=== PATIENT | male | born 1970 | race American Indian/Alaskan Native ===

== ENCOUNTER 2018-12-13 11:24 | Emergency (ER) | payer SELFPAY ==
[2018-12-13] MEDS ORDERED: XANAX PO ONE (12:09)
[2018-12-13] MEDS ORDERED: CATAPRES PO ONE (12:09)
--- NOTE | 2018-12-13 12:10 | Emergency Department Report ---
ED Chest Pain HPI - General Chief Complaint: Chest Pain Stated Complaint: LIGHT HEADED/(L) SIDE PAIN/DIZZINESS Time Seen by Provider: 12/13/18 12:03 Source: patient Mode of arrival: Ambulatory Limitations: No Limitations - History of Present Illness Initial Comments: Pt is 48 yo AA male with acute onset chest pain, dizziness, and blurred vision. It happened this AM while arguing. He has had this off and on for months all in the setting of fighting or stress. no cig etoh daily drugs thc dad dec ? cause mom a/W hx asthma rx none pcp none MD Complaint: chest pain -: Sudden, month(s) (but off and on for months) Aspirin use within the Past 7 Days: (0) No - Related Data On Oral Contraceptives: No Allergies Allergy/AdvReac Type Severity Reaction Status Date / Time No Known Allergies Allergy Verified 12/13/18 11:33 Heart Score - HEART Score History: Slightly suspicious EKG: Normal Age: < 45 Risk factors: No known risk factors Troponin: < normal limit HEART Score: 0 ED Review of Systems ROS: Stated complaint: LIGHT HEADED/(L) SIDE PAIN/DIZZINESS Other details as noted in HPI Comment: All other systems reviewed and negative Constitutional: denies: chills Eyes: denies: eye pain ENT: denies: ear pain Respiratory: denies: cough Cardiovascular: as per HPI, chest pain Endocrine: denies: flushing Gastrointestinal: denies: abdominal pain, vomiting Genitourinary: denies: urgency Skin: denies: rash Neurological: denies: weakness Psychiatric: denies: as per HPI, depression ED Past Medical Hx - Past Medical History Previous Medical History?: Yes Hx Asthma: Yes - Surgical History Past Surgical History?: Yes Additional Surgical History: rigth knee, left arm - Social History Smoking Status: Never Smoker Substance Use Type: Alcohol ED Physical Exam - General Limitations: No Limitations General appearance: alert, in no apparent distress - Head Head exam: Present: atraumatic - Eye Eye exam: Present: normal appearance, PERRL, EOMI Pupils: Present: normal accommodation - ENT ENT exam: Present: mucous membranes moist - Neck Neck exam: Present: normal inspection - Respiratory Respiratory exam: Present: normal lung sounds bilaterally - Cardiovascular Cardiovascular Exam: Present: regular rate - GI/Abdominal GI/Abdominal exam: Present: soft - Rectal Rectal exam: Present: deferred - Extremities Exam Extremities exam: Present: normal inspection, full ROM - Back Exam Back exam: Present: normal inspection, full ROM - Neurological Exam Neurological exam: Present: alert, oriented X3 ED Course Vital Signs 12/13/18 12/13/18 11:33 12:40 Temperature 97.9 F Pulse Rate 78 73 Respiratory 20 Rate Blood Pressure 172/103 170/111 O2 Sat by Pulse 100 Oximetry - Reevaluation(s) Reevaluation #1: 12/13/18 13:19 discussed blood pressure monitoring and importance of follow up medicated here with clonidine and xanax bp trending down on dc no cp HOWARD score - Howard Score Age > 65: (0) No Aspirin use within the Past 7 Days: (0) No 3 or more CAD Risk Factors: (0) No 2 or more Angina events in past 24 hrs: (0) No Known CAD with more than 50% Stenosis: (0) No Elevated Cardiac Markers: (0) No ST Deviation Greater than 0.5mm: (0) No HOWARD Score: 0 ED Medical Decision Making - Lab Data Result diagrams: 12/13/18 12:04 12/13/18 12:04 - EKG Data -: EKG Interpreted by Me EKG shows normal: sinus rhythm Rate: normal - EKG Data When compared to previous EKG there are: previous EKG unavailable Interpretation: nonspecific ST-T wave lonnie - Radiology Data Radiology results: report reviewed, image reviewed interpreted by me: staci - Medical Decision Making labs normal trop neg 12 lead with t wave inversion avR and V1 discussed with Dr Sammy black home with follow up Labs 12/13/18 12/13/18 12:04 12:04 WBC 6.8 RBC 5.54 H Hgb 14.9 Hct 44.9 MCV 81 L MCH 27 L MCHC 33 RDW 14.6 Plt Count 339 Sodium 141 Potassium 4.4 Chloride 103.1 Carbon Dioxide 24 Anion Gap 18 BUN 11 Creatinine 0.9 Estimated GFR > 60 BUN/Creatinine Ratio 12 Glucose 99 Calcium 9.1 Total Bilirubin 0.30 AST 26 ALT 35 Alkaline Phosphatase 105 Troponin T < 0.010 Total Protein 7.8 Albumin 4.3 Albumin/Globulin Ratio 1.2 - Differential Diagnosis ro acs; anxiety Critical care attestation.: If time is entered above; I have spent that time in minutes in the direct care of this critically ill patient, excluding procedure time. ED Disposition Clinical Impression: Anxiety, Non-cardiac chest pain, Elevated blood pressure reading Disposition: DC- TO HOME OR SELFCARE Is pt being admited?: No Does the pt Need Aspirin: No Condition: Stable Instructions: Chest Pain (ED), Anxiety (ED) Additional Instructions: rest hydrate well with water WHEN ANGRY-- WALK AWAY avoid alcohol and drugs Follow up primary montessori teacher monitor your blood pressure low salt and fat diet Referrals: JACINTO GUPTA MD [Primary Care Provider] - 3-5 Days Time of Disposition: 13:07
[2018-12-13 12:20] LABS: Hematocrit 44.9 % (35.5-45.6); Hemoglobin 14.9 gm/dl (11.8-15.2); Mean Corpuscular HGB Conc 33 % (32-34); Mean Corpuscular Volume 81 fl (84-94); Platelet Count 339 K/mm3 (140-440); Red Blood Count 5.54 M/mm3 (3.65-5.03); Red Cell Distribution Width 14.6 % (13.2-15.2)
[2018-12-13 12:45] LABS: Alanine Aminotransferase 35 units/L (7-56); Albumin 4.3 g/dL (3.9-5); BUN/Creatinine Ratio 12; Blood Urea Nitrogen 11 mg/dL (9-20); Calcium 9.1 mg/dL (8.4-10.2); Hemolysis Index 17
--- NOTE | 2018-12-13 12:48 | XRay Report ---
ROUTINE CHEST, TWO VIEWS: HISTORY: chest pain. The trachea, heart, mediastinal contour, lung flores and bony thorax are unremarkable. IMPRESSION: Unremarkable chest x-ray.
[2018-12-13 13:24] VITALS: BP 143/96
== END 2018-12-13 13:24 | disposition home or self-care (01) ==
LOC: EDBD → ED 11:24
DX: F41.9 Anxiety disorder, unspecified (principal); I10 Essential (primary) hypertension; J45.909 Unspecified asthma, uncomplicated
CPT/HCPCS: 36415; 71046; 80053; 84484; 85027; 93005; 93010; 99284

== ENCOUNTER 2019-05-04 11:52 | Emergency (ER) | payer SELFPAY ==
--- NOTE | 2019-05-04 12:10 | Emergency Department Report ---
Blank Doc - Documentation Documentation: This is a 48-year-old male that presents with dizziness. Stated had a syncopal episode 2 weeks ago. This initial assessment/diagnostic orders/clinical plan/treatment(s) is/are subject to change based on patient's health status, clinical progression and re- assessment by fellow clinical providers in the ED. Further treatment and workup at subsequent clinical providers discretion. Patient/guardians urged not to elope from the ED as their condition may be serious if not clinically assessed and managed. Initial orders include: 1- Patient sent to [facility] for further evaluation and treatment 2- labs 3- EKG 4- CT head
[2019-05-04 12:11] VITALS: BP 148/84
--- NOTE | 2019-05-04 14:22 | Emergency Department Report ---
ED General Adult HPI - General Chief complaint: Dizziness Stated complaint: DIZZY/NAUSEA/PASSED OUT Time Seen by Provider: 05/04/19 12:09 Source: patient Mode of arrival: Ambulatory Limitations: No Limitations - History of Present Illness Initial comments: Patient is a 48-year-old male who is presenting with 2 weeks of not feeling right. Patient states he is getting very dizzy at times nauseated. He occasionally feels his heart racing and palpitations. Patient states that he is under some stress at home and 2 weeks ago had a syncopal episode. Patient states she was hyperventilating while angry. Patient currently states he feels as though occasionally his heart skipping a beat. He denies any facial numbness and tingling. - Related Data Previous Rx's Medication Instructions Recorded Last Taken Type ALPRAZolam [Xanax TAB] 0.25 mg PO BID PRN #6 tab 05/04/19 Unknown Rx Allergies Allergy/AdvReac Type Severity Reaction Status Date / Time No Known Allergies Allergy Verified 12/13/18 11:33 ED Review of Systems ROS: Stated complaint: DIZZY/NAUSEA/PASSED OUT Other details as noted in HPI Comment: All other systems reviewed and negative ED Past Medical Hx - Past Medical History Previous Medical History?: Yes Hx Asthma: Yes - Surgical History Past Surgical History?: Yes Additional Surgical History: rigth knee, left arm - Social History Smoking Status: Never Smoker Substance Use Type: Alcohol - Medications Home Medications: Home Medications Medication Instructions Recorded Confirmed Last Taken Type ALPRAZolam [Xanax TAB] 0.25 mg PO BID PRN #6 tab 05/04/19 Unknown Rx ED Physical Exam - General Limitations: No Limitations General appearance: alert, in no apparent distress - Head Head exam: Present: atraumatic, normocephalic - Eye Eye exam: Present: normal appearance, PERRL, EOMI - ENT ENT exam: Present: mucous membranes moist - Neck Neck exam: Present: normal inspection - Respiratory Respiratory exam: Present: normal lung sounds bilaterally. Absent: respiratory distress, wheezes, rales, rhonchi - Cardiovascular Cardiovascular Exam: Present: regular rate, normal rhythm. Absent: systolic murmur, diastolic murmur, rubs, gallop - GI/Abdominal GI/Abdominal exam: Present: soft, normal bowel sounds. Absent: distended, tenderness, guarding, rebound - Rectal Rectal exam: Present: deferred - Extremities Exam Extremities exam: Present: normal inspection - Back Exam Back exam: Present: normal inspection - Neurological Exam Neurological exam: Present: alert, oriented X3 - Psychiatric Psychiatric exam: Present: normal affect, normal mood - Skin Skin exam: Present: warm, dry, intact, normal color. Absent: rash ED Course Vital Signs 05/04/19 12:09 Temperature 97.9 F Pulse Rate 67 Respiratory 20 Rate Blood Pressure 148/84 O2 Sat by Pulse 99 Oximetry ED Medical Decision Making - Lab Data 86 - EKG Data -: EKG Interpreted by Me EKG shows normal: axis, intervals, QRS complexes, ST-T waves Rate: normal, tachycardia - EKG Data Interpretation: normal EKG - Medical Decision Making Patient is a 48-year-old male who is presenting with palpitations and dizziness. Patient reports being under a court greatly stressed. Did do an EKG that showed no acute abnormality. Orthostatics were negative and the patient was nondiabetic. Patient will be discharged home with primary care follow-up. Critical care attestation.: If time is entered above; I have spent that time in minutes in the direct care of this critically ill patient, excluding procedure time. ED Disposition Clinical Impression: Anxiety as acute reaction to exceptional stress Disposition: DC-01 TO HOME OR SELFCARE Is pt being admited?: No Does the pt Need Aspirin: No Condition: Stable Instructions: Generalized Anxiety Disorder (ED) Prescriptions: ALPRAZolam [Xanax TAB] 0.25 mg PO BID PRN #6 tab PRN Reason: Anxiety Referrals: ALEXANDER LYLES MD [Primary Care Provider] - 3-5 Days Time of Disposition: 14:22
== END 2019-05-04 14:33 | disposition home or self-care (01) ==
LOC: ED 11:52
DX: F41.1 Generalized anxiety disorder (principal); R42 Dizziness and giddiness; R55 Syncope and collapse; J45.909 Unspecified asthma, uncomplicated
CPT/HCPCS: 82962; 93005; 93010

== ENCOUNTER 2020-04-28 04:01 | Emergency (ER) | payer SELFPAY ==
[2020-04-28 04:11] VITALS: BP 142/100
--- NOTE | 2020-04-28 04:37 | XRay Report ---
CHEST 1 VIEW 04/28/2020 4:30 AM INDICATION / CLINICAL INFORMATION: Chest Pain. COMPARISON: 2 views of the chest from 12/13/2018. FINDINGS: SUPPORT DEVICES: None. HEART / MEDIASTINUM: No significant abnormality. LUNGS / PLEURA: No significant pulmonary or pleural abnormality. No pneumothorax. ADDITIONAL FINDINGS: No significant additional findings. IMPRESSION: 1. No acute abnormality of the chest. Signer Name: Urbano Anne MD Signed: 04/28/2020 4:33 AM Workstation Name: [id number]
[2020-04-28 04:53] LABS: Basophils % (Auto) 0.5 % (0.0-1.8); Eosinophils # (Auto) 0.3 K/mm3 (0.0-0.4); Eosinophils % (Auto) 6.4 % (0.0-4.3); Hemoglobin 14.3 gm/dl (11.8-15.2); Lymphocytes # (Auto) 2.7 K/mm3 (1.2-5.4); Lymphocytes % (Auto) 49.3 % (13.4-35.0); Mean Corpuscular HGB Conc 33 % (32-34); Mean Corpuscular Volume 81 fl (84-94); Monocytes # (Auto) 0.4 K/mm3 (0.0-0.8); Monocytes % (Auto) 7.8 % (0.0-7.3); Platelet Count 264 K/mm3 (140-440); Red Blood Count 5.46 M/mm3 (3.65-5.03); Red Cell Distribution Width 14.9 % (13.2-15.2)
[2020-04-28 05:11] LABS: BUN/Creatinine Ratio 19; Blood Urea Nitrogen 19 mg/dL (9-20); Calcium 9.5 mg/dL (8.4-10.2); Hemolysis Index 9
[2020-04-28] MEDS ORDERED: ONDANSETRON 4 MG ODT TAB ONE (06:45)
[2020-04-28] MEDS ORDERED: ASPIRIN 325 MG TAB PO ONE (07:02)
--- NOTE | 2020-04-28 07:09 | Emergency Department Report ---
HPI - General Chief Complaint: Chest Pain PUI?: No Time Seen by Provider: 04/28/20 06:50 - HPI HPI: Room 37 The patient is a 49-year-old male present with a chief complaint of chest pain. The patient states this morning after having sex when he was immediately postcoital he developed chest pain described as a sharp tightness radiating to the left upper extremity. Patient states he developed numbness in his left upper extremity as well as diaphoresis nausea/vomiting and shortness of breath. Patient states the pain lasted for approximately 30 minutes and EMS was called. The patient states he has had similar episodes over the past month after sexual intercourse. Patient states he is never had a stress test or cardiac catheterization ED Past Medical Hx - Past Medical History Previous Medical History?: Yes Hx Hypertension: Yes Hx Asthma: Yes - Surgical History Past Surgical History?: Yes Additional Surgical History: left knee, left arm - Family History Family history: no significant - Social History Smoking Status: Never Smoker Substance Use Type: Alcohol (Occasional), Marijuana - Medications Home Medications: Home Medications Medication Instructions Recorded Confirmed Last Taken Type ALPRAZolam [Xanax TAB] 0.25 mg PO BID PRN #6 tab 05/04/19 Unknown Rx ED Review of Systems ROS: Stated complaint: CHEST PAIN Other details as noted in HPI Constitutional: diaphoresis Eyes: denies: eye pain ENT: denies: throat pain Respiratory: shortness of breath Cardiovascular: chest pain Endocrine: no symptoms reported Gastrointestinal: nausea, vomiting Physical Exam - Physical Exam Vital Signs: Vital Signs 04/28/20 04:06 Temperature 97.6 F Pulse Rate 75 Respiratory 18 Rate Blood Pressure 142/100 O2 Sat by Pulse 97 Oximetry Physical Exam: GENERAL: The patient is well-developed well-nourished male lying on stretcher not appearing to be in acute distress. [] HEENT: Normocephalic. Atraumatic. Extraocular motions are intact. Patient has moist mucous membranes. NECK: Supple. Trachea midline CHEST/LUNGS: Clear to auscultation. There is no respiratory distress noted. HEART/CARDIOVASCULAR: Regular. There is no tachycardia. There is no gallop rub or murmur. ABDOMEN: Abdomen is soft, nontender. Patient has normal bowel sounds. There is no abdominal distention. SKIN: There is no rash. There is no edema. There is no diaphoresis. NEURO: The patient is awake, alert, and oriented. The patient is cooperative. The patient has normal speech MUSCULOSKELETAL: There is no evidence of acute injury. ED Course Vital Signs 04/28/20 04:06 Temperature 97.6 F Pulse Rate 75 Respiratory 18 Rate Blood Pressure 142/100 O2 Sat by Pulse 97 Oximetry ED Medical Decision Making - Lab Data Result diagrams: 04/28/20 04:25 04/28/20 04:25 - EKG Data -: EKG Interpreted by Me EKG shows normal: sinus rhythm Rate: normal - EKG Data When compared to previous EKG there are: previous EKG unavailable Interpretation: other (No ischemic changes seen) - Radiology Data Radiology results: report reviewed (Chest x-ray), image reviewed (Chest x-ray) interpreted by me: Chest x-ray-no focal infiltrates, no pneumothorax Findings [facility] [address] [place] [address] XRay Report Signed Patient: PITA NIEVES MR#: [id number] : 1970 Acct:[id number] Age/Sex: 49 / M ADM Date: 04/28/20 Loc: ED Attending Dr: Ordering Physician: ED MD SOLOMON Date of Service: 04/28/20 Procedure(s): XR chest 1V ap Accession Number(s): [id number] cc: ED MD SOLOMON Fluoro Time In Minutes: CHEST 1 VIEW 04/28/2020 4:30 AM INDICATION / CLINICAL INFORMATION: Chest Pain. COMPARISON: 2 views of the chest from 12/13/2018. FINDINGS: SUPPORT DEVICES: None. HEART / MEDIASTINUM: No significant abnormality. LUNGS / PLEURA: No significant pulmonary or pleural abnormality. No pneumothorax. ADDITIONAL FINDINGS: No significant additional findings. IMPRESSION: 1. No acute abnormality of the chest. Signer Name: Urbano Anne MD Signed: 04/28/2020 4:33 AM Workstation Name: [id number] Transcribed By: [place] Dictated By: Urbano Anne MD Electronically Authenticated By: Urbano Anne MD Signed Date/Time: 04/28/20432 DD/ 1 TD/TT: - Medical Decision Making I explained to the patient that he may be having an acute coronary event as we speak. Patient verbalized understanding. I advised the patient not to leave the hospital as he may be having a cardiac event. Patient verbalized un derstanding states that he must leave but will return in approximately 10 minutes to be admitted to the hospital. Patient leaving the hospital AGAINST MEDICAL ADVICE - Differential Diagnosis Angina, ACS, pericarditis, GERD Critical care attestation.: If time is entered above; I have spent that time in minutes in the direct care of this critically ill patient, excluding procedure time. ED Disposition Clinical Impression: Chest pain Disposition: DC-07 LEFT AGAINST MED ADVICE Is pt being admited?: Yes Does the pt Need Aspirin: Yes Condition: Undetermined Instructions: Chest Pain (ED) Referrals: ALEXANDER LYLES MD [Primary Care Provider] - 3-5 Days Forms: AMA Form Time of Disposition: 07:09 (Patient leaving AMA. Patient states he will be back in approximately 10 minutes to be admitted)
== END 2020-04-28 07:09 | disposition left against medical advice (07) ==
LOC: ED 04:01
DX: R07.89 Other chest pain (principal); R20.2 Paresthesia of skin; I10 Essential (primary) hypertension; J45.909 Unspecified asthma, uncomplicated
CPT/HCPCS: 36415; 71045; 80048; 84484; 85025; 93005; Q0162

== ENCOUNTER 2020-04-28 08:11 | Observation (INO) | payer OTHER ==
[2020-04-28] MEDS ORDERED: NITROGLYCERIN 2% OINT 1 GM TP ONE (09:34)
--- NOTE | 2020-04-28 09:38 | Emergency Department Report ---
HPI - General Chief Complaint: Chest Pain PUI?: No Time Seen by Provider: 04/28/20 09:24 - HPI HPI: Room 3 The patient was seen earlier this morning at 07:00 AM please see that HPI for further details. The patient was going to be admitted earlier this morning but stated he had to go home to take care of personal business and he now returns to be admitted to the hospital. Patient states he does not have chest pain currently just occasional "gas." ED Past Medical Hx - Past Medical History Previous Medical History?: Yes Hx Hypertension: Yes Hx Asthma: Yes Additional medical history: chest pain - Surgical History Past Surgical History?: Yes Additional Surgical History: left knee, left arm - Family History Family history: no significant - Social History Smoking Status: Current Some Day Smoker Substance Use Type: Alcohol, Marijuana - Medications Home Medications: Home Medications Medication Instructions Recorded Confirmed Last Taken Type ALPRAZolam [Xanax TAB] 0.25 mg PO BID PRN #6 tab 05/04/19 Unknown Rx ED Review of Systems ROS: Stated complaint: CHEST PAIN Other details as noted in HPI Constitutional: diaphoresis Respiratory: shortness of breath Cardiovascular: chest pain Gastrointestinal: nausea, vomiting Physical Exam - Physical Exam Vital Signs: Vital Signs 04/28/20 08:16 Temperature 97.8 F Pulse Rate 68 Respiratory 20 Rate Blood Pressure 124/89 [Right] O2 Sat by Pulse 99 Oximetry Physical Exam: GENERAL: The patient is well-developed well-nourished male lying on stretcher not appearing to be in acute distress. [] HEENT: Normocephalic. Atraumatic. Extraocular motions are intact. Patient has moist mucous membranes. NECK: Supple. Trachea midline CHEST/LUNGS: Clear to auscultation. There is no respiratory distress noted. HEART/CARDIOVASCULAR: Regular. There is no tachycardia. There is no gallop rub or murmur. ABDOMEN: Abdomen is soft, nontender. Patient has normal bowel sounds. There is no abdominal distention. SKIN: There is no rash. There is no edema. There is no diaphoresis. NEURO: The patient is awake, alert, and oriented. The patient is cooperative. The patient has normal speech MUSCULOSKELETAL: There is no evidence of acute injury. ED Course Vital Signs 04/28/20 08:16 Temperature 97.8 F Pulse Rate 68 Respiratory 20 Rate Blood Pressure 124/89 [Right] O2 Sat by Pulse 99 Oximetry ED Medical Decision Making - EKG Data -: EKG Interpreted by Me EKG shows normal: sinus rhythm Rate: bradycardia (56 bpm) - EKG Data When compared to previous EKG there are: no significant change - Differential Diagnosis ACS, pericarditis, angina, GERD Critical care attestation.: If time is entered above; I have spent that time in minutes in the direct care of this critically ill patient, excluding procedure time. ED Disposition Clinical Impression: Chest pain Disposition: DC-09 OP ADMIT IP TO THIS HOSP Is pt being admited?: Yes Does the pt Need Aspirin: Yes Condition: Fair Instructions: Chest Pain (ED) Referrals: PRIMARY CARE, [Primary Care Provider] - 3-5 Days Time of Disposition: 09:38 (Hospitalist paged)
[2020-04-28 10:55] LABS: Chol/HDL Ratio 2.73 %
[2020-04-28] MEDS ORDERED: MORPHINE 2 MG/1 ML INJ IV PRN (11:21)
[2020-04-28] MEDS ORDERED: NITROGLYCERIN 0.4 MG TAB SUBL SL PRN (11:21)
[2020-04-28] MEDS ORDERED: ACETAMINOPHEN 325 MG TAB PO PRN (11:21)
[2020-04-28] MEDS ORDERED: ALBUTEROL 2.5 MG/3 ML NEBU IH PRN (13:26)
[2020-04-28 17:23] LABS: Creatine Kinase MB 1.9 ng/mL (0.0-4.0)
[2020-04-28] MEDS: METOPROLOL TARTRATE 25 MG TAB PO SCH (21:15)
[2020-04-28] MEDS ORDERED: TEMAZEPAM 15 MG CAP PO ONE (21:17)
[2020-04-29 01:03] LABS: Creatine Kinase MB 1.9 ng/mL (0.0-4.0)
[2020-04-29 05:47] LABS: BUN/Creatinine Ratio 17; Blood Urea Nitrogen 17 mg/dL (9-20); Calcium 9.1 mg/dL (8.4-10.2); Hemolysis Index 9
[2020-04-29] MEDS: LISINOPRIL 5 MG TAB PO SCH (10:04)
[2020-04-29] MEDS: PANTOPRAZOLE 40 MG TAB PO SCH (10:04)
[2020-04-29] MEDS: ASPIRIN 325 MG TAB PO SCH (10:04)
[2020-04-29] MEDS: METOPROLOL TARTRATE 25 MG TAB PO SCH (10:06)
[2020-04-29 12:36] LABS: Amphetamine Screen,Urine PRESUMPTIVE NEGATIVE; Benzodiazepines Screen,Urine PRESUMPTIVE NEGATIVE; Cocaine Screen,Urine PRESUMPTIVE NEGATIVE; Methadone Screen,Urine PRESUMPTIVE NEGATIVE; Opiate Screen,Urine PRESUMPTIVE NEGATIVE
[2020-04-29 12:51] LABS: Cannabinoid Screen,Urine PRESUMPTIVE POSITIVE
[2020-04-29 16:18] LABS: Free T4 (Free Thyroxine) 1.14 ng/dL (0.76-1.46)
[2020-04-29] MEDS: carvediloL 6.25 MG TAB PO SCH (21:15)
[2020-04-29] MEDS ORDERED: TEMAZEPAM 15 MG CAP PO PRN (21:28)
[2020-04-30] MEDS ORDERED: REGADENOSON 0.4 MG/5 ML INJ IV ONE (07:49)
[2020-04-30] MEDS: PANTOPRAZOLE 40 MG TAB PO SCH (11:57)
[2020-04-30] MEDS: ASPIRIN 325 MG TAB PO SCH (11:57)
[2020-04-30] MEDS: LISINOPRIL 5 MG TAB PO SCH (11:57)
[2020-04-30 11:58] VITALS: BP 123/85
[2020-04-30] MEDS: carvediloL 6.25 MG TAB PO SCH (11:58)
--- NOTE | 2020-04-30 14:52 | Treadmill Report ---
NUCLEAR PERFUSION SCAN REFERRING PHYSICIAN: Hospitalist service. PROTOCOL: The patient was brought to the stress lab in a postoperative state, given 10 mCi of technetium 99m at rest. The patient underwent rest imaging. The patient underwent a treadmill stress test per standard protocol. At peak stress, the patient was given 26 mCi of technetium 99m. Shortly thereafter, the patient underwent stress imaging. Raw imaging reveals mild GI artifact, no significant motion artifact. SPECT imaging examined carefully in horizontal long axis, vertical long axis, short axis views. There is normal mitral uptake of radioisotope in all 4 segments. No evidence of significant fixed or reversible perfusion defects suggestive of prior infarction or ischemia. Gated wall motion reveals normal systolic thickening, calculated ejection fraction of 50%, no TID. CONCLUSIONS: 1. Normal myocardial perfusion scan without evidence of active ischemia or prior infarction. 2. Normal left ventricular systolic performance without evidence of transient ischemic dilatation or stress-induced segmental wall motion abnormalities. 3. Treadmill stress test reported separately. JOB# [id number] ZACH/LA
== END 2020-04-30 15:50 | disposition home or self-care (01) ==
LOC: ED 08:11 → 4A 09:47
PROVIDERS: ADMIT Internal Medicine; ATTEND Internal Medicine
DX: I21.19 ST elevation (STEMI) myocardial infarction involving other coronary artery of inferior wall (principal); E78.5 Hyperlipidemia, unspecified; K21.9 Gastro-esophageal reflux disease without esophagitis; R00.1 Bradycardia, unspecified; I10 Essential (primary) hypertension; R79.89 Other specified abnormal findings of blood chemistry; J45.909 Unspecified asthma, uncomplicated; F17.200 Nicotine dependence, unspecified, uncomplicated; Z79.899 Other long term (current) drug therapy
CPT/HCPCS: 36415; 78452; 80048; 80061; 80307; 82550; 82553; 84439; 84443; 84484; 93017; 93306; 99284; A9270; A9502; G0378; J2785